=== PATIENT | female | born 1995 | race Caucasian/White ===

== ENCOUNTER 2018-08-25 10:42 | Emergency (ER) | payer OTHER ==
--- NOTE | 2018-08-25 11:07 | EDPHY ---
H & P Stated Complaint: FALL SNOWBOARDING YESTERDAY/NO LOC BUT DEFICITS R/T EVENTS BISHOP L ARM PAIN - Personal History LMP (Females 10-55): 22-28 Days Ago Current Tetanus Diphtheria and Acellular Pertussis (TDAP): Yes - Medical/Surgical History Hx Asthma: No Hx Chronic Respiratory Disease: No Hx Diabetes: No Hx Cardiac Disease: No Hx Renal Disease: No Hx Cirrhosis: No Hx Alcoholism: No Hx HIV/AIDS: No Hx Splenectomy or Spleen Trauma: No Other PMH: DENIES - Social History Smoking Status: Never smoked Time Seen by Provider: 08/25/18 10:57 HPI/ROS: CHIEF COMPLAINT: Left shoulder injury post snowboarding HISTORY OF PRESENT ILLNESS: 23-year-old immunocompetent female with no vasculopathy or anticoagulant use history was the helmeted snow boarder yesterday at a [facility] ski area, fell onto her left shoulder, also impacted her head face and head. No loss of consciousness. She developed transient epistaxis now resolved however she is complaining primarily of left shoulder pain reproducible with range of motion. She did have 1 episode of emesis approximately an hour after returning home however otherwise has been feeling well with no further episodes of emesis. She does complain of photophobia. No headache. No gait instability. No slurred speech. No amnesia. No midline C-spine pain. No peripheral paresthesia, weakness, numbness. REVIEW OF SYSTEMS: 10 systems reviewed and negative with the exception of the elements mentioned in the history of present illness PAST MEDICAL/SURGICAL HISTORY: no anticoagulant use, no relevant medical/ surgical history SOCIAL HISTORY: denies alcohol use at time of incident PHYSICAL EXAM 1) GENERAL: Well-developed, well-nourished, alert and oriented. Appears to be in no acute distress. Answering questions appropriately. Smiling, shakes my hand appears well 2) HEAD: Normocephalic, atraumatic 3) HEENT: Pupils equal, round, reactive to light bilaterally. Negative Horners. Nasopharynx, oropharynx, clear. No deformity or angulation of nose. No septal hematoma. Extraocular movements are intact not elicit diplopia. Facial bones and extraocular region are nontender. No evidence of trauma. No rhinorrhea. No oral trauma. Ears bilaterally with normal tympanic membranes. No hemotympanum. No fluid or blood in the external auditory canal. No raccoon eyes. No Feng sign. Teeth are normally aligned with no gross malocclusion, TMJ bilaterally nontender, facial bones nontender including the zygomatic arch, maxilla mandible. 4) NECK: No cervical collar is on. Posterior cervical spine is nontender, no stepoff, no effusion. Full range of motion which does not elicit any midline cervical spine pain, no posterior midline tenderness, no step-off. 5) LUNGS: Clear to auscultation bilaterally, no wheezes, no rhonchi, no retractions. No obvious signs of trauma. No chest wall pain. No flaring, no grunting. Moving symmetrically. No crepitus. 6) HEART: [Regular rate and rhythm, 7) ABDOMEN: No guarding, no rebound, no focal tenderness, no peritoneal signs, no signs of trauma, no ecchymosis 8) MUSCULOSKELETAL: Left upper extremity: No visible trauma no step-off a. normal geographic landmarks. Tender to palpation anterolateral aspect of shoulder. Reproducible pain with palpation range of motion. No axillary nerve dysfunction. Distally nontender. Neurovascular exam normal distally. Otherwise, Moving all extremities, no focal areas of tenderness, no obvious trauma. 9) BACK: No midline vertebral tenderness, no fluctuance, no step-off, no obvious trauma, no visual or palpable abnormality. 10) SKIN: No laceration. No abrasion 11) NEURO: Awake, alert, and oriented to person, place and time. Answers questions appropriately. There were no obvious focal neurologic abnormalities. No cerebellar dysfunction. Cranial nerves 2 through to 12 intact. Normal steady gait. Upper and lower extremities bilaterally with strength 5 / 5, reflexes 2+. DIFFERENTIAL DIAGNOSIS: In no particular order including but not limited to fracture, sprain, strain, dislocation, concussion, intracranial hemorrhage, skull fracture (Scar,Pamela Christine) Constitutional: Initial Vital Signs Temperature (C) 36.6 C 08/25/18 10:45 Heart Rate 79 08/25/18 10:45 Respiratory Rate 18 08/25/18 10:45 Blood Pressure 133/83 H 08/25/18 10:45 O2 Sat (%) 97 08/25/18 10:45 O2 Delivery Mode Room Air Allergies/Adverse Reactions: No Known Allergies Allergy (Unverified 08/25/18 10:45) Home Medications: Medication Instructions Recorded Hydrocodone/APAP [[place] 1 tab PO Q6 PRN #7 tab 08/25/18 5/325 (RX)] Medical Decision Making - Diagnostics Imaging Results: Imaging Impressions Shoulder X-Ray 08/25/18 11:01 Impression: No definite fracture or dislocation of the left shoulder. Images reviewed myself (Pamela Abbott) Procedures: Procedure: Splint A sling splint was applied by ER cnc service technician. After application of the splint I returned and re-examined the patient. The splint was adequately immobilizing the joint and distal to the splint the patient's circulation and sensation were intact. Patient shows no signs of compartment syndrome. Was given orthopedic precautions. (Pamela Abbott) ED Course/Re-evaluation: Regarding the patient's left shoulder injury, she has no definitive osseous abnormality. I explained limitations of x-ray, notably that non osseous injury is not ruled out and recommended follow up with Orthopedics as outpatient, non emergent MRI may be indicated. Given orthopedic referral Regarding her head injury, she has a nonfocal neurologic exam, negative [place] head and C-spine decision-making tools. I do not think that the benefits of CT imaging outweigh the risks in this patient with low pretest suspicion for intracranial hemorrhage, skull fracture, cervical fracture. Nonetheless I offered this to the patient she is in agreement she does not feel is indicated. I have provided my usual and customary head injury precautions including, but not limited to, 2nd impact syndrome. She feels comfortable being discharged. Care of patient under supervision of primary supervising physician Dr Garcia ( Pamela Abbott) Other Provider: PHYSICIAN DOCUMENTATION: The patient was evaluated and managed by the Physician Hydro Mechanic. My co- signature indicates that I have reviewed this chart and I agree with the findings and plan of care as documented. I am the secondary supervising physician. (Gavino Garcia) Departure - Departure Disposition: Home, Routine, Self-Care Clinical Impression: Snowboarding accident, Head injury due to trauma, Sprain of left shoulder Condition: Good Instructions: Head Injury (ED), Shoulder Sprain (ED) Additional Instructions: ALTHOUGH THERE IS NO EVIDENCE OF SERIOUS HEAD INJURY AT THIS TIME, DELAYED SIGNS CAN APPEAR 24 TO 48 HOURS AFTER INJURY. PLEASE RETURN TO THE EMERGENCY DEPARTMENT (ED) IMMEDIATELY IF YOU HAVE INCREASED HEADACHE, PERSISTENT HEADACHE , VOMITING, WEAKNESS, CONFUSION OR VISUAL PROBLEMS. WE RECOMMEND THAT YOU DO NOT RESUME CONTACT SPORTS OR ACTIVITIES THAT TAKE COORDINATION OR BALANCE SUCH SKIING OR RIDING A BICYCLE UNTIL CLEARED TO DO SO BY YOUR DOCTOR OR BY A NEUROLOGIST. Referrals: Raine Serrato MD [Medical Doctor] - 5-7 days, call for appt. (Dr. Serrato is a rehabilitation doctor) Jacob Messer MD [Medical Doctor] - 5-7 days, call for appt. (Dr. Messer is orthopedic doctor) Prescriptions: Hydrocodone/APAP 5/325 [[place] 5/325 (RX)] 1 tab PO Q6 PRN #7 tab PRN Reason: Pain, Severe
[2018-08-25 11:42] VITALS: BP 130/86
--- NOTE | 2018-08-25 12:00 | ASMTCAGE ---
CAGE Do you feel you ought to Answers: No cut down on your drinking or drug use? Additional Comments Admits to drinking while snowboarding and "probably not a good idea" Denies history of accidents or "too much drinking" Drinks socially w/ friends Date Signed: 08/25/2018 11:59 AM Electronically Signed By:Corrine Christie RN
== END 2018-08-25 11:44 | disposition home or self-care (01) ==
DX: S09.90XA Unspecified injury of head, initial encounter (principal); S43.92XA Sprain of unspecified parts of left shoulder girdle, initial encounter; V00.311A Fall from snowboard, initial encounter; Y93.23 Activity, snow (alpine) (downhill) skiing, snowboarding, sledding, tobogganing and snow tubing; Y92.89 Other specified places as the place of occurrence of the external cause